=== PATIENT | female | born 1940 | race Caucasian/White ===

== ENCOUNTER 2016-10-19 08:31 | Emergency (ER) | payer MEDICARE ==
[~2016-10-19] VITALS: Ht 167.6 cm; Wt 90.9 kg
[~2016-10-19 08:31] MED LIST: ASPI-973 PO; CALC-140 PO; HYDR25TA4 PO; IND20; LEVO50TA6 PO; LISI-567 PO; LORA10CA PO; OMEP20CA11 PO; PRAV80TA PO
[2016-10-19 08:46] VITALS: BP 176/47; PULSE 59; RESP 18; O2SAT 98
--- NOTE | 2016-10-19 09:02 | ED.REPORT ---
HPI-Abd Pain F 40 and Over Date of Service October 19, 2016 ED Provider: Dr. Mcgrath Pt is a 76 y/o female w/ a hx of HTN, CKD III, hyperlipidemia, borderline diabetes, presenting to the ED w/ her c/o intermittent left flank pain onset 01:30 today. The patient was seen at Urgent Care earlier today and told to come here for further evaluation and possible imaging. Twisting or bending movements may have exacerbated her symptoms earlier on the day but this is unclear per the patient. She does relate that they found "crystals" in her kidneys along with CKD III for which she is followed by general merchandise salesperson Dr. Lopez. Pt denies vomiting, diarrhea, fever, hematuria, rash. She was diagnosed with a sinus infection 2 weeks ago by her PCP which has resolved. Nursing Notes Stated Complaint: LEFT FLANK PAIN Chief Complaint: Female Abdominal Pain Nursing Notes Reviewed: Yes Allergies: Coded Allergies: No Known Allergies (Unverified , 10/19/16) Scheduled Aspirin (Aspirin) 81 Mg Tablet 81 MG PO DAILY Hydrochlorothiazide (Hydrochlorothiazide) 25 Mg Tablet 12.5 MG PO DAILY Levothyroxine (Levothyroxine) 50 Mcg Tablet 50 MCG PO DAILY Lisinopril (Lisinopril) 20 Mg Tablet 20 MG PO DAILY Pravastatin (Pravastatin) 80 Mg Tablet 80 MG PO HS Propranolol HCl (Propranolol HCl) 20 Mg Tablet 20 MG PO BID Ranitidine (Ranitidine) 150 Mg Capsule 150 MG PO DAILY Scheduled PRN Loratadine (Claritin) 10 Mg Capsule 10 MG PO DAILY PRN PRN For Eye Irritation Tramadol (Tramadol) 50 Mg Tablet 50 MG PO Q4H PRN PRN For Pain General Time Seen by MD: 09:02 Chief Complaint Flank pain left Hx Obtained From: Patient Arrived By: Walk-in Sudden in Onset?: Yes Onset Occurred: 5 - 8 hours ago Symptom Duration: Since onset Progression since Onset: Unchanged Location: : Flank left Quality: Painful Severity: Current: Mild Severity: Maximum: Moderate Similar Sx Previous: No Past Medical History Past Medical History Osteopenia Hx of colon polyps CKD III Borderline diabetes Hypothyroid Hypertension Hyperlipidemia Arthritis GERD Diverticulosis Past Surgical History x2 Tonsillectomy Appendectomy Smoking History Never Smoker Social History Alcohol Use: "Social" Ambulatory Status Independent Review of Systems Constitutional: Denies: Chills, Fever Respiratory: Denies: Non-productive cough, Pleuritic pain, Shortness of breath Cardiovascular: Denies: Chest pain, Dyspnea on exertion GI: Denies: Abdominal pain, Diarrhea, Nausea, Vomiting Female: Reports: Flank pain, Denies: Hematuria Complete sys rev & neg: except as marked. Physical Exam Vital Signs Vital Signs (First) Date Time Temp Pulse Resp B/P Pulse Ox O2 Delivery O2 Flow Rate FiO2 10/19/16 08:46 36.4 59 18 176/47 98 Room Air Initial VS: Reviewed, Vital signs abnormal Head / Eyes: Atraumatic, Normocephalic, PERRL ENT: Mucous membranes moist, Conjunctiva normal, No scleral icterus Neck: Supple, Full range of motion Extremities: Vascular intact, Neuro intact, No swelling Skin: Warm, Dry, No cyanosis Neurologic: Alert, Oriented, Nonfocal Psychiatric: Mood/affect normal, Behavior normal, Normal thought content General/Constitutional: Awake, Alert, No acute distress, Well appearing, Cooperative, Not toxic appearing Respiratory / Chest: Breath sounds NL, Breath sounds = bilat, No respiratory distress, No rales, No rhonchi, No wheezing, No retractions, No stridor Focal left lower rib cage tenderness Cardiovascular: Heart rate NL, Regular rhythm, Heart sounds NL, No gallop, No murmurs, No rubs Abdomen: Soft, Non-tender, No guarding, No rebound, No distention, No palpable mass Back: Full range of motion, Painless range of motion, No CVA tenderness Interpretation & Diagnostics Interpretation & Diagnostics: CT KUB: IMPRESSION: 1. No renal stone or hydronephrosis. 2. Cholelithiasis. 3. Colonic diverticulosis without evidence of diverticulitis. 4. No free fluid or air. 5. No dilated loops of bowel. Dictated by: Marguerite Knight MD, PhD on 10/19/2016 at 9:54 Approved by: Marguerite Knight MD, PhD on 10/19/2016 at 10:01 Lab Results Interpretation Result Diagram: 10/19/16 0845 10/19/16 0845 Test 10/19/16 08:45 White Blood Count 6.2th/mm3 (3.8-10.1) Red Blood Count 4.33mil/mm3 (3.90-5.20) Hemoglobin 13.2g/dL (12.0-15.6) Hematocrit 39.6% (35.0-46.0) Mean Corpuscular Volume 91.5fL (81-100) Mean Corpuscular Hemoglobin 30.5pg (27.0-35.0) Mean Corpuscular Hemoglobin Concent 33.3% (32.0-37.0) Red Cell Distribution Width 13.3% (12.3-15.4) Platelet Count 167bil/L (150-400) Neutrophils (%) (Auto) 71.3% (40-74) Lymphocytes (%) (Auto) 21.5% (14-46) Monocytes (%) (Auto) 4.3% (4-12) Eosinophils (%) (Auto) 2.1% (0-5) Basophils (%) (Auto) 0.6% (0-3) D-Dimer < 0.50mg/L FEU (<0.50) Sodium Level 140mEq/L (134-144) Potassium Level 5.4mEq/L (3.5-5.2) Chloride Level 102mEq/L (97-108) Carbon Dioxide Level 21mmol/L (18-29) Blood Urea Nitrogen 32mg/dL (8-27) Creatinine 1.37mg/dL (0.57-1.00) Estimat Glomerular Filtration Rate 54mL/min (>59) Glucose Level 127mg/dL (60-99) Calcium Level 9.6mg/dL (8.5-10.1) Magnesium Level 1.8mg/dL (1.6-2.6) Total Bilirubin 0.3mg/dL (0.0-1.2) Aspartate Amino Transf (AST/SGOT) 16U/L (0-50) Alanine Aminotransferase (ALT/SGPT) 14U/L (0-32) Alkaline Phosphatase 71U/L (25-165) Troponin T < 0.010ug/L (0.0-0.011) Total Protein 7.0g/dL (6.4-8.4) Albumin 4.8g/dL (3.4-5.0) Lipase 122U/L (13-60) Hold Raza Top Tube Received (Received) Lab Results Interpretation: Urine dip from Urgent Care had trace leukocyte esterase otherwise negative ECG Interpretation ECG Interpretation: EKG from Urgent Care Time: 09:13 Interpreted by: ED physician Normal ECG Interpretation: Normal ECG w/ rate of... (59), Normal rate, Normal sinus rhythm, No acute ischemic changes, Normal QRS, Normal axis, Normal intervals, Adequate tracing X-Ray Chest Interpretation Chest Xray Interpretation: IMPRESSION: Left basilar pneumonia versus atelectasis. Please correlate clinically. Dictated by: Bradley Sotelo M.D. on 10/19/2016 at 9:30 Approved by: Bradley Sotelo M.D. on 10/19/2016 at 9:31 View: Portable, 1 view Interpretation / Wet Read by: Interpret - Radiologist Re-Eval/Medical Decision Med Decision/Clinical Course Nonspecific left rib and left upper quadrant pain, she has mild hyperkalemia that it does not seem significant, mild lipase elevation and and history not consistent with pancreatitis, also not consistent with pneumonia. Tramadol prescribed. Return and follow-up precautions given. Re-Evaluation/Progress : Time of Eval: 10:47 Re-Evaluation/Progress Note: Pt rechecked. Discussed lab and imaging results. Informed pt of plan for treatment. Pt understands and agrees with plan for treatment. Once again discussed and the patient has no signs or symptoms of pneumonia. F/U instructions and RTER warnings given. All questions addressed. Counseled Regarding: Diagnosis, Lab results, Need for follow-up, When/why to return to ED Discharge & Departure Primary Impression: Rib pain on left side Disposition: Home Discharge Condition All VS Reviewed: Yes Condition: Stable Additional Instructions: Overall your work is reassuring. Use Tylenol and tramadol for pain. Rest, use ice and heat. Call your primary care doctor for close follow-up. Return to ER for high fever, persistent vomiting, severe persistent uncontrolled pain, or any other concerns that your symptoms are worsening. Referrals: Rad Conway MD (PCP) Scribe Attestation Portions of this note were transcribed by Rajiv Orr. I, Dr. Mcgrath personally performed the history, physical exam and medical decision-making; I reviewed and confirmed the accuracy of the information in the transcribed note. Signed by Jazmín Reagan, 10/19/16 - 50 copies to: Rad Conway MD, Timothy S DO October 19, 2016 09:02 RAJIV ORR October 19, 2016 09:12
[2016-10-19] MEDS ORDERED: 0.9% Sodium Chloride 1,000 ML IV ONE (09:12)
[2016-10-19] MEDS ORDERED: Ondansetron 2 mg/mL 2 mL Inj IVPUSH PRN (09:15)
[2016-10-19] MEDS ORDERED: LORA10CA PO (09:17)
[2016-10-19] MEDS ORDERED: PRAV80TA2 PO (09:17)
[2016-10-19] MEDS ORDERED: HYDR25TA4 PO (09:17)
[2016-10-19] MEDS ORDERED: RANI150C4 PO (09:17)
[2016-10-19] MEDS ORDERED: PROP20TA5 PO (09:17)
[2016-10-19 09:18] LABS: BASOPHILS % (AUTO) 0.6 % (0-3); EOSINOPHILS % (AUTO) 2.1 % (0-5); MONOCYTES % (AUTO) 4.3 % (4-12); Mean Corpuscular Hemoglobin 30.5 pg (27.0-35.0); Mean Corpuscular Volume 91.5 fL (81-100); NEUTROPHILS % (AUTO) 71.3 % (40-74); Platelet Count 167 bil/L (150-400)
[2016-10-19 09:41] LABS: Magnesium 1.8 mg/dL (1.6-2.6)
--- NOTE | 2016-10-19 10:02 | DRSVH ---
PROCEDURE: CT KUB ([id number]) INDICATIONS: left flank,LUQ pain, Left lower rib pain TECHNIQUE: Noncontrast 5 mm thick sections acquired from the diaphragms to the symphysis. 5 mm thick coronal an d sagittal reformats were then performed. For radiation dose reduction, the following was used: aut omated exposure control, adjustment of mA and/or kV according to patient size. COMPARISON: None. FINDINGS: Image quality: Excellent. Lung bases: Lung bases are clear. Heart size is normal. Urinary system: Both kidneys are normal in size. No kidney stones. No hydronephrosis or perinephri c fat stranding. Both ureters appear non-dilated throughout their expected courses. Bladder wall th ickness is normal; no calcified bladder stones. Other solid organs: Liver and spleen are normal in size. Gallbladder contains gallstones. Pancreas is normal in contours. No adrenal nodules. Peritoneum and bowel: Unenhanced bowel loops demonstrate normal wall thickness and caliber. Scattere d diverticuli noted in the colon without evidence of diverticulitis. No free fluid or air. The appen jose e is normal. Nodes and vessels: No retroperitoneal or mesenteric adenopathy by size criteria. Aorta and inferior vena cava are normal in caliber. Abdominal wall: No ventral hernias. Pelvis: No free pelvic fluid. No adenopathy. Small, bilateral, fat containing inguinal hernias are noted. Bones: No suspicious bony lesions. No vertebral body compression fractures. Spine degenerative disc disease and facet arthropathy are noted. IMPRESSION: 1. No renal stone or hydronephrosis. 2. Cholelithiasis. 3. Colonic diverticulosis without evidence of diverticulitis. 4. No free fluid or air. 5. No dilated loops of bowel. Dictated by: Marguerite Knight MD, PhD on 10/19/2016 at 9:54 Approved by: Marguerite Knight MD, PhD on 10/19/2016 at 10:01
--- NOTE | 2016-10-19 10:33 | DRSVH ---
PROCEDURE: X-RAY CHEST ONE VIEW, PORTABLE ([id number]) INDICATIONS: lower left chest pain/left flank pain TECHNIQUE: One view of the chest was acquired. COMPARISON: None. FINDINGS: Surgical changes and devices: None. Lungs and pleura: Slight interstitial prominence at the left lung base is noted. No lobar consolidat ion, large effusion, or pneumothorax is evident. Mediastinum: Mediastinal contours appear normal. Heart size is normal. Bones and chest wall: No suspicious bony lesions. Overlying soft tissues appear unremarkable. IMPRESSION: Left basilar pneumonia versus atelectasis. Please correlate clinically. Dictated by: Bradley Sotelo M.D. on 10/19/2016 at 9:30 Approved by: Bradley Sotelo M.D. on 10/19/2016 at 9:31
[2016-10-19] MEDS ORDERED: TRAM50TA2 PO (11:01)
[2016-10-19 11:09] VITALS: BP 138/56; PULSE 60; RESP 18; O2SAT 98
== END 2016-10-19 11:12 | disposition home or self-care (01) ==
LOC: SED 08:31
DX: R07.81 Pleurodynia (principal); E11.22 Type 2 diabetes mellitus with diabetic chronic kidney disease; I13.10 Hypertensive heart and chronic kidney disease without heart failure, with stage 1 through stage 4 chronic kidney disease, or unspecified chronic kidney disease; N18.3 Chronic kidney disease, stage 3 (moderate); E78.5 Hyperlipidemia, unspecified; K21.9 Gastro-esophageal reflux disease without esophagitis; E03.9 Hypothyroidism, unspecified; Z79.82 Long term (current) use of aspirin; Z79.899 Other long term (current) drug therapy
CPT/HCPCS: 36415; 71010; 74176; 80053; 83690; 83735; 84484; 85025; 85378; 96361; 96374; 96375; 99285; J2270; J2405; J7030